=== PATIENT | male | born 1955 | race Caucasian/White ===

== ENCOUNTER 2017-12-05 13:26 | Inpatient (IN) | payer OTHER ==
[~2017-12-05] VITALS: Ht 177.8 cm; Wt 67.6 kg
[2017-12-05 17:01] VITALS: BP 150/84
[2017-12-05] MEDS ORDERED: TYLENOL EXTRA500 MG ORAL (18:32)
[2017-12-05 20:00] VITALS: BP 130/81
[2017-12-06] VITALS: BP 117/67
[2017-12-06 04:00] VITALS: BP 110/68
[2017-12-06 07:04] LABS: BASOPHILS % (AUTO) 0.7 % (0.0-2.0); EOSINOPHILS % (AUTO) 0.4 % (0.0-3.0); HEMOGLOBIN 8.9 G/DL (14.2-18.0); LYMPHOCYTES % (AUTO) 25.4 % (20.0-45.0); MEAN CORPUSCULAR VOLUME 101 FL (80-99); MONOCYTES % (AUTO) 9.8 % (1.0-10.0); NEUTROPHILS % (AUTO) 63.8 % (45.0-75.0); PLATELET COUNT 296 K/UL (150-450); RED BLOOD COUNT 2.76 M/UL (4.70-6.10); WHITE BLOOD COUNT 7.7 K/UL (4.8-10.8)
[2017-12-06 07:24] LABS: ALANINE AMINOTRANSFERASE 22 U/L (12-78); ALBUMIN 2.9 G/DL (3.4-5.0); ALBUMIN/GLOBULIN RATIO 0.8 (1.0-2.7); ALKALINE PHOSPHATASE 78 U/L (46-116); ANION GAP 6 mmol/L (5-15); ASPARTATE AMINO TRANSFERASE 16 U/L (15-37); BILIRUBIN,TOTAL 0.4 MG/DL (0.2-1.0); BLOOD UREA NITROGEN 13 mg/dL (7-18); CALCIUM 8.5 MG/DL (8.5-10.1); CARBON DIOXIDE 27 MMOL/L (21-32); CHLORIDE 106 MMOL/L (98-107); CREATININE 0.8 MG/DL (0.55-1.30); POTASSIUM 3.2 MMOL/L (3.5-5.1); SODIUM 139 MMOL/L (136-145)
[2017-12-06 07:58] VITALS: BP 120/68
[2017-12-06 12:00] VITALS: BP 124/75
--- NOTE | 2017-12-06 12:55 | History & Physical ---
History and Physical History & Physicial Dictated for Int Med-Dr Harper no [id number] Adrián Leblanc MD Dec 06, 2017 12:55
[2017-12-06 13:52] LABS: % IRON SATURATION 7 % (15-50); IRON 21 ug/dL (50-175); TOTAL IRON BINDING CAPACITY 315 ug/dL (250-450)
[2017-12-06 16:00] VITALS: BP 131/82
--- NOTE | 2017-12-06 19:15 | History and Physical Report ---
DATE OF ADMISSION: 12/05/2017 CHIEF COMPLAINT: The patient is a 62-year-old white male who presents with chief complaint of "I passed out". HISTORY OF PRESENT ILLNESS: The patient states a similar incident happened approximately six months ago at . The patient was evaluated at [facility] [place]. The patient states he left against medical advice prior to full workup being performed. The patient states he was at the bus stop yesterday. He had not eaten breakfast. The patient felt week. The patient states he "slumped to the ground." The patient states he was conscious of his surroundings during this episode. The patient did defecate on himself during this syncopal episode. The patient presented initially to [facility] Emergency Room. The patient was admitted with near syncopal episode. The patient is transferred to [facility] for insurance purposes. The patient is admitted for syncope to rule out seizure versus cerebrovascular accident. REVIEW OF SYSTEMS: CONSTITUTIONAL: The patient denies weight loss or weight gain. The patient denies fevers or chills. HEENT: The patient denies ear or throat pain. The patient denies headache. CARDIOVASCULAR: The patient denies palpitations or chest pain. CHEST: The patient denies wheeze or shortness of breath. ABDOMINAL: The patient denies nausea, vomiting, diarrhea, or constipation. GENITOURINARY: The patient denies dysuria or increased frequency of urination. NEUROMUSCULAR: The patient denies seizure or generalized weakness. PAST MEDICAL HISTORY: Significant for: 1. Seizure disorder, status post craniotomy at age 32. 2. Peptic ulcer disease, status post gastrointestinal hemorrhage. 3. Osteoporosis. 4. Hypercholesterolemia. 5. Nephrolithiasis x3. PAST SURGICAL HISTORY: Significant for craniotomy at age 32 for ablation of seizure disorder. CURRENT MEDICATIONS: As needed Tylenol. ALLERGIES: No known drug allergies. 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 The patient admits to tobacco use one pack per day. The patient denies alcohol use. PHYSICAL EXAMINATION: VITAL SIGNS: Temperature 99.4 degrees, respirations 20, pulse 73, and blood pressure 117/67. GENERAL: The patient is well developed, well nourished, white male, in no apparent distress. HEENT: Eyes, pupils equal and responsive to light and accommodation. Extraocular movements are intact. NECK: Supple without lymphadenopathy. CHEST: Lungs are clear to auscultation bilaterally without wheezes or rales. CARDIOVASCULAR: Regular rate. S1 and S2 normal without murmurs, rubs, or gallops. ABDOMEN: Soft, nontender, and nondistended. Positive bowel sounds. No evidence of hepatosplenomegaly. Currently, no rebound or guarding noted. EXTREMITIES: Negative for clubbing, cyanosis, or edema. RECTAL: Refused. GENITAL: Refused. NEUROLOGIC: Cranial nerves II to XII are grossly intact without focal deficits. Motor strength is 5/5 bilaterally intact. Deep tendon reflexes are 2+ plantar. INTEGUMENT: There are multiple contusions on the forehead. There is no laceration noted. LABORATORY STUDIES: From [place], WBC 10.2, hemoglobin 10.3, hematocrit 31.3, and platelets 385,000. , potassium 3.4, chloride 107, CO2 21, BUN 10, creatinine 0.88, and glucose 132. revealed status post right frontal craniotomy, otherwise within normal limits. ASSESSMENT: This is a 62-year-old white male with: 1. Syncopal episode. 2. History of seizure disorder. 3. Anemia. 4. Peptic ulcer disease. 5. History of gastrointestinal hemorrhage. 6. Hypercholesterolemia. 7. Osteoporosis. 8. Contusion of the forehead. TREATMENT: 1. Syncopal episode. A Neurology consultation was obtained with Dr. Tristan Torres. A Cardiology consultation has been obtained with Dr. Michael Mirza. We will follow recommendations of Cardiology and Neurology. Syncope may be secondary to on seizure versus cerebrovascular accident versus arrhythmia. 2. Peptic ulcer disease. The patient is currently anemic. A GI workup has been ordered with Dr. Robin Buchanan. 3. Peptic ulcer disease. Continue Protonix. 4. Hypercholesterolemia. 5. Osteoporosis. 6. Contusion of the forehead. Adrián Leblanc M.D. DR: Leon JOB#: [id number] CC:
[2017-12-06 20:00] VITALS: BP 141/77
[2017-12-07] VITALS: BP 140/77
[2017-12-07 04:00] VITALS: BP 134/83
[2017-12-07 06:42] LABS: HEMOGLOBIN 9.4 G/DL (14.2-18.0); MEAN CORPUSCULAR VOLUME 101 FL (80-99); PLATELET COUNT 305 K/UL (150-450); RED BLOOD COUNT 2.98 M/UL (4.70-6.10); RED CELL DISTRIBUTION WIDTH 14.7 % (11.6-14.8); WHITE BLOOD COUNT 6.4 K/UL (4.8-10.8)
[2017-12-07 07:09] LABS: ANION GAP 10 mmol/L (5-15); BLOOD UREA NITROGEN 16 mg/dL (7-18); CALCIUM 8.7 MG/DL (8.5-10.1); CARBON DIOXIDE 26 MMOL/L (21-32); CHLORIDE 106 MMOL/L (98-107); CHOLESTEROL 156 MG/DL (< 200); CREATININE 0.9 MG/DL (0.55-1.30); HDL CHOLESTEROL 58 MG/DL (40-60); POTASSIUM 3.4 MMOL/L (3.5-5.1); SODIUM 142 MMOL/L (136-145); TRIGLYCERIDES 104 MG/DL (30-150)
[2017-12-07 07:57] VITALS: BP 149/74
--- NOTE | 2017-12-07 10:18 | GI Initial Consult Note ---
History of Present Illness General Date patient seen: Dec 07, 2017 Time patient seen: 12:23 Referring physician: NILAM MACIAS Reason for Consultation: ANEMIA Present Illness HPI HISTORY OF PRESENT ILLNESS: The patient states a similar incident happened approximately six months ago. The patient was evaluated at [facility] at [place]. The patient states he left against medical advice prior to full workup being performed. The patient states he was at the bus stop yesterday. He had not eaten breakfast. The patient felt week. The patient states he "slumped to the ground." The patient states he was conscious of his surroundings during this episode. The patient did defecate on himself during this syncopal episode. GI consulted for anemia. Pt seen, awake A&Ox4 NAD no active s/sx of N/V/D. Denies any abdominal pain, mainly asymptomatic at this time. States he had an syncopal episode, but feels okay now. Labs show anemia. Last EGD/colonoscopy over 10 years ago. Home Meds Reported Medications Acetaminophen* (TYLENOL EXTRA STRENGTH*) 500 Mg Tablet, 500 MG ORAL Q6H PRN for Mild Pain/Temp > 100.5, TAB 0 Refills 12/05/17 Med list reviewed/reconciled: Yes Allergies: Coded Allergies: No Known Allergies (Unverified , 12/05/17) Patient History History Provided By: Patient, Medical Record [facility] Narrative PAST MEDICAL HISTORY: Significant for: 1. Seizure disorder, status post craniotomy at age 32. 2. Peptic ulcer disease, status post gastrointestinal hemorrhage. 3. Osteoporosis. 4. Hypercholesterolemia. 5. Nephrolithiasis x3. PAST SURGICAL HISTORY: Significant for craniotomy at age 32 for ablation of seizure disorder. Social History: Reports: smoking - life long smoker Review of Systems All Other Systems: negative except mentioned in HPI Physical Exam Vital Signs Date Time Temp Pulse Resp B/P (MAP) Pulse Ox O2 Delivery O2 Flow Rate FiO2 12/05/17 16:34 Room Air 12/05/17 17:01 98.8 64 20 150/84 (106) 97 Sp02 EP Interpretation: reviewed, normal Labs Laboratory Tests Test 12/07/17 06:05 White Blood Count 6.4 K/UL (4.8-10.8) Red Blood Count 2.98 M/UL (4.70-6.10) L Hemoglobin 9.4 G/DL (14.2-18.0) L Hematocrit 30.0 % (42.0-52.0) L Mean Corpuscular Volume 101 FL (80-99) H Mean Corpuscular Hemoglobin 31.5 PG (27.0-31.0) H Mean Corpuscular Hemoglobin Concent 31.2 G/DL (32.0-36.0) L Red Cell Distribution Width 14.7 % (11.6-14.8) Platelet Count 305 K/UL (150-450) Mean Platelet Volume 5.5 FL (6.5-10.1) L Neutrophils (%) (Auto) % (45.0-75.0) Lymphocytes (%) (Auto) % (20.0-45.0) Monocytes (%) (Auto) % (1.0-10.0) Eosinophils (%) (Auto) % (0.0-3.0) Basophils (%) (Auto) % (0.0-2.0) Neutrophils % (Manual) Pending Lymphocytes % (Manual) Pending Platelet Estimate Pending Platelet Morphology Pending Sodium Level 142 MMOL/L (136-145) Potassium Level 3.4 MMOL/L (3.5-5.1) L Chloride Level 106 MMOL/L (98-107) Carbon Dioxide Level 26 MMOL/L (21-32) Anion Gap 10 mmol/L (5-15) Blood Urea Nitrogen 16 mg/dL (7-18) Creatinine 0.9 MG/DL (0.55-1.30) Estimat Glomerular Filtration Rate > 60 mL/min (>60) Glucose Level 92 MG/DL (74-106) Calcium Level 8.7 MG/DL (8.5-10.1) Ferritin 27 NG/ML (8-388) Triglycerides Level 104 MG/DL (30-150) Cholesterol Level 156 MG/DL (< 200) LDL Cholesterol 89 mg/dL (<100) HDL Cholesterol 58 MG/DL (40-60) Cholesterol/HDL Ratio 2.7 (3.3-4.4) L General Appearance: well appearing, no apparent distress, alert Head: normocephalic EENT: PERRL/EOMI, normal ENT inspection Neck: supple Respiratory: normal breath sounds, no respiratory distress Cardiovascular: normal rate Gastrointestinal: normal inspection, non tender, soft, normal bowel sounds, non -distended Rectal: deferred Genitourinary: deferred Musculoskeletal: normal inspection, back normal Neurologic: normal inspection, alert, oriented x3, responsive Psychiatric: normal inspection, judgement/insight normal, memory normal Skin: normal inspection, normal color, no rash, warm/dry, palpation normal, well hydrated Lymphatic: normal inspection, no adenopathy Current Medications Current Medications Medications (Trade) Dose Ordered Sig/John Route PRN Reason Start Time Stop Time Status Last Admin Dose Admin Acetaminophen (Tylenol) 650 mg Q4H PRN ORAL Mild Pain (Pain Scale 1-3) 12/06/17 12:45 01/05/18 12:44 Acetaminophen (Tylenol) 650 mg Q4H PRN ORAL T>100.5 12/06/17 12:45 01/05/18 12:44 Dextrose (Dextrose 50%) 25 ml Q30M PRN IV Hypoglycemia 12/06/17 12:45 01/05/18 12:44 Dextrose (Dextrose 50%) 50 ml Q30M PRN IV Hypoglycemia 12/06/17 12:45 01/05/18 12:44 Pantoprazole (Protonix) 40 mg DAILY ORAL 12/06/17 12:45 01/05/18 12:44 12/06/17 15:09 GI: Plan Problems: (1) Anemia (2) PUD (peptic ulcer disease) (3) Syncope and collapse Plan EGD/colonoscopy to be scheduled pending cardiac work up pending echo okay to advance diet after work up anemia work up OB stool r/o GI bleed monitor H&H, prn transfusions bowel regime ppi fu labs Discussed with Dr. Buchanan. Thank you for this patient referral, we will follow. The patient was seen and examined at bedside and all new and available data was reviewed in the patients chart. I agree with the above findings, impression and plan. (Patient seen earlier today. Signature stamp does not reflect patient encounter time.). - MD Gricel Liriano,[facility] CHIEF CONTROLLER Dec 07, 2017 10:18
--- NOTE | 2017-12-07 11:31 | Consultation ---
History of Present Illness General Date patient seen: Dec 07, 2017 Present Illness HPI 62-year-old white male with hx of PUD, Seizure disorder, status post craniotomy at age 32 presented to [place] initially with CC of passing out. The patient states he was at the bus stop yesterday. He had not eaten breakfast. The patient felt week. The patient states he "slumped to the ground." The patient states he was conscious of his surroundings during this episode. He is transferred to [facility] for further evaluation. His Hemoglobin was very low. A GI consult is called already to rule out GI bleeding. Allergies: Coded Allergies: No Known Allergies (Unverified , 12/05/17) Medication History Scheduled PRN Acetaminophen* (Tylenol Extra Strength*), 500 MG ORAL Q6H PRN for Mild Pain/ Temp > 100.5, (Reported) Patient History Healthcare decision maker N Resuscitation status Full Code Advanced Directive on File No Past Medical/Surgical History Past Medical/Surgical History: (1) S/P craniotomy (2) PUD (peptic ulcer disease) Review of Systems Constitutional: Reports: sweats, malaise All Other Systems: negative except mentioned in HPI Physical Exam General Appearance: WD/WN Lines, tubes and drains: peripheral HEENT: normocephalic, atraumatic Neck: non-tender, normal alignment Respiratory/Chest: chest wall non-tender, lungs clear Breasts: no masses Cardiovascular/Chest: normal peripheral pulses Abdomen: normal bowel sounds, no organomegaly Genitourinary/Rectal: normal genital exam Last 24 Hour Vital Signs Date Time Temp Pulse Resp B/P (MAP) Pulse Ox O2 Delivery O2 Flow Rate FiO2 12/07/17 09:00 Room Air 12/07/17 08:00 55 12/07/17 07:57 98.4 74 20 149/74 (99) 94 12/07/17 04:00 55 12/07/17 04:00 98.0 62 20 134/83 (100) 93 12/07/17 00:00 98.0 65 20 140/77 (98) 96 12/07/17 00:00 61 12/06/17 21:00 Room Air 12/06/17 20:00 98.1 65 20 141/77 (98) 96 12/06/17 20:00 82 12/06/17 16:00 99.0 71 20 131/82 (98) 95 12/06/17 16:00 68 12/06/17 12:00 98.4 69 20 124/75 (91) 96 12/06/17 12:00 83 Intake and Output 12/06/17 12/07/17 19:00 07:00 Intake Total 800 ml Output Total 100 ml Balance 700 ml Intake Oral 800 ml Output Urine Total 100 ml # Bowel Movements 1 1 Laboratory Tests Test 12/07/17 06:05 White Blood Count 6.4 K/UL (4.8-10.8) Red Blood Count 2.98 M/UL (4.70-6.10) L Hemoglobin 9.4 G/DL (14.2-18.0) L Hematocrit 30.0 % (42.0-52.0) L Mean Corpuscular Volume 101 FL (80-99) H Mean Corpuscular Hemoglobin 31.5 PG (27.0-31.0) H Mean Corpuscular Hemoglobin Concent 31.2 G/DL (32.0-36.0) L Red Cell Distribution Width 14.7 % (11.6-14.8) Platelet Count 305 K/UL (150-450) Mean Platelet Volume 5.5 FL (6.5-10.1) L Neutrophils (%) (Auto) % (45.0-75.0) Lymphocytes (%) (Auto) % (20.0-45.0) Monocytes (%) (Auto) % (1.0-10.0) Eosinophils (%) (Auto) % (0.0-3.0) Basophils (%) (Auto) % (0.0-2.0) Neutrophils % (Manual) Pending Lymphocytes % (Manual) Pending Platelet Estimate Pending Platelet Morphology Pending Sodium Level 142 MMOL/L (136-145) Potassium Level 3.4 MMOL/L (3.5-5.1) L Chloride Level 106 MMOL/L (98-107) Carbon Dioxide Level 26 MMOL/L (21-32) Anion Gap 10 mmol/L (5-15) Blood Urea Nitrogen 16 mg/dL (7-18) Creatinine 0.9 MG/DL (0.55-1.30) Estimat Glomerular Filtration Rate > 60 mL/min (>60) Glucose Level 92 MG/DL (74-106) Calcium Level 8.7 MG/DL (8.5-10.1) Ferritin 27 NG/ML (8-388) Troponin I Pending Triglycerides Level 104 MG/DL (30-150) Cholesterol Level 156 MG/DL (< 200) LDL Cholesterol 89 mg/dL (<100) HDL Cholesterol 58 MG/DL (40-60) Cholesterol/HDL Ratio 2.7 (3.3-4.4) L Height (Feet): 5 Height (Inches): 10.00 Weight (Pounds): 149 Medications Current Medications Medications (Trade) Dose Ordered Sig/John Route PRN Reason Start Time Stop Time Status Last Admin Dose Admin Acetaminophen (Tylenol) 650 mg Q4H PRN ORAL Mild Pain (Pain Scale 1-3) 12/06/17 12:45 01/05/18 12:44 Acetaminophen (Tylenol) 650 mg Q4H PRN ORAL T>100.5 12/06/17 12:45 01/05/18 12:44 Dextrose (Dextrose 50%) 25 ml Q30M PRN IV Hypoglycemia 12/06/17 12:45 01/05/18 12:44 Dextrose (Dextrose 50%) 50 ml Q30M PRN IV Hypoglycemia 12/06/17 12:45 01/05/18 12:44 Pantoprazole (Protonix) 40 mg DAILY ORAL 12/06/17 12:45 01/05/18 12:44 12/06/17 15:09 Assessment/Plan Problem List: (1) Acute encephalopathy ICD Codes: G93.40 - Encephalopathy, unspecified SNOMED: 70007672, 845416433 (2) Anemia ICD Codes: D64.9 - Anemia, unspecified SNOMED: 158721107 (3) PUD (peptic ulcer disease) ICD Codes: K27.9 - Peptic ulcer, site unspecified, unspecified as acute or chronic, without hemorrhage or perforation SNOMED: 91633663 (4) S/P craniotomy ICD Codes: Z98.890 - Other specified postprocedural states SNOMED: 06240494, 20315551, 316215120 (5) Syncope and collapse ICD Codes: R55 - Syncope and collapse SNOMED: 742784690 Assessment/Plan telemetry monitoring GI work up anemia w/u in progress iron studies check echo cardio and neuro evaluation. Sergo Moore MD Dec 07, 2017 11:31
--- NOTE | 2017-12-07 12:17 | Diagnostic Imaging Report ---
APPROVED REPORT CPT Code: 27050 Vascular Symptoms Syncope CAROTID (BILATERAL) - Imaging reveals no significant plaque within the right and left extracranial carotid arteries. The Doppler spectral flow analysis is within normal limits throughout the extracranial carotid arteries bilaterally. VERTEBRAL- The vertebral arteries are within normal limits.
--- NOTE | 2017-12-07 12:22 | Cardiology Report ---
APPROVED REPORT EXAM: Two-dimensional and M-mode echocardiogram with Doppler and color Doppler. INDICATION Syncope M-Mode DIMENSIONS IVSd1.4 (0.7-1.1cm)Left Atrium (MM)3.7 (1.6-4.0cm) LVDd3.6 (3.5-5.6cm)Aortic Root3.2 (2.0-3.7cm) PWd1.0 (0.7-1.1cm)Aortic Cusp Exc.1.8 (1.5-2.0cm) IVSs1.6 cm LVDs2.1 (2.5-4.0cm) PWs1.5 cm Technically difficult study due to poor acoustical windows. Normal left ventricular chamber size, systolic function and wall motion to extent visualized. Left ventricular ejection fraction estimated to be 60-65 %. Mild left ventricular hypertrophy. No evidence of pericardial effusion. All other cardiac chamber sizes are within normal limits. Focal aortic valve sclerosis with adequate cusp excursion. Thickened mitral valve leaflets with normal excursion. Mitral annulus and aortic root calcification. Pulmonic valve not well visualized. Normal tricuspid valve structure. IVC at normal size with physiologic collapse. A color flow and spectral Doppler study was performed and revealed: Trace aortic regurgitation. Trace mitral regurgitation. Mitral diastolic velocities suggest reduced left ventricular relaxation c/w mild LV diastolic dysfunction (Grade I). Trace tricuspid regurgitation. Tricuspid systolic velocities suggests peak right ventricular systolic pressure of 16 mmHg.
--- NOTE | 2017-12-07 13:02 | Diagnostic Imaging Report ---
Indication: Seizure disorder. History of craniotomy 30 years ago Technique: The head was imaged in a 1.5 María magnet. Sequences obtained include sagittal and axial T1 FLAIR, axial T2 fast spin echo with fat saturation, axial T2 FLAIR, diffusion and ADC map. Comparison: None In the right frontal lobe there is a cystic focus measuring about 7 x 6.2 x 5.7 cm. There is an overlying craniotomy present. The cystic focus is similar in signal intensity to CSF and appears to communicate with the anterior horn of the right lateral ventricle. There is likely been resection of a part of the frontal lobe. There is no edema within the residual right frontal or temporal lobe. There is no midline shift. There is fairly extensive periventricular T2 hyperintense signal bilaterally presumably on the basis of chronic small vessel disease. Mild atrophy of the cerebrum noted. Moderate atrophy of the cerebellum demonstrated. There is no evidence of hemorrhage. There is no diffusion restriction to suggest ischemia. Osseous structures appear normal. There is either been resection or atrophy of the anterior part of the corpus callosum. The sella is grossly unremarkable. IMPRESSION: No acute CVA, mass effect, edema or hemorrhage. 7 cm cystic focus in the right frontal lobe in continuity with the right lateral ventricle and likely associated with previous partial right frontal lobe resection. Overlying craniotomy noted. Moderate cerebellar atrophy and mild cerebral atrophy. Nonspecific periventricular T2 hyperintense signal. Chronic small vessel disease likely given patient's age.
--- NOTE | 2017-12-07 13:11 | Diagnostic Imaging Report ---
Indication: Dyspnea Comparison: None A single view chest radiograph was obtained. Findings: Cardiomediastinal appearance is within normal limits for age. The lungs are clear. Pulmonary vascularity is appropriate. The diaphragmatic contour is smooth and costophrenic angles are sharp. No pleural effusions are identified. The bones are osteopenic. Impression: No acute findings
--- NOTE | 2017-12-07 15:02 | Cardiac Electrophysiology PN ---
Subjective Subjective [id number] Objective Last 24 Hour Vital Signs Date Time Temp Pulse Resp B/P (MAP) Pulse Ox O2 Delivery O2 Flow Rate FiO2 12/07/17 12:00 61 12/07/17 09:00 Room Air 12/07/17 08:00 55 12/07/17 07:57 98.4 74 20 149/74 (99) 94 12/07/17 04:00 55 12/07/17 04:00 98.0 62 20 134/83 (100) 93 12/07/17 00:00 98.0 65 20 140/77 (98) 96 12/07/17 00:00 61 12/06/17 21:00 Room Air 12/06/17 20:00 98.1 65 20 141/77 (98) 96 12/06/17 20:00 82 12/06/17 16:00 99.0 71 20 131/82 (98) 95 12/06/17 16:00 68 Intake and Output 12/06/17 12/07/17 19:00 07:00 Intake Total 800 ml Output Total 100 ml Balance 700 ml Intake Oral 800 ml Output Urine Total 100 ml # Bowel Movements 1 1 Laboratory Tests Test 12/07/17 06:05 White Blood Count 6.4 K/UL (4.8-10.8) Red Blood Count 2.98 M/UL (4.70-6.10) L Hemoglobin 9.4 G/DL (14.2-18.0) L Hematocrit 30.0 % (42.0-52.0) L Mean Corpuscular Volume 101 FL (80-99) H Mean Corpuscular Hemoglobin 31.5 PG (27.0-31.0) H Mean Corpuscular Hemoglobin Concent 31.2 G/DL (32.0-36.0) L Red Cell Distribution Width 14.7 % (11.6-14.8) Platelet Count 305 K/UL (150-450) Mean Platelet Volume 5.5 FL (6.5-10.1) L Neutrophils (%) (Auto) % (45.0-75.0) Lymphocytes (%) (Auto) % (20.0-45.0) Monocytes (%) (Auto) % (1.0-10.0) Eosinophils (%) (Auto) % (0.0-3.0) Basophils (%) (Auto) % (0.0-2.0) Differential Total Cells Counted 100 Neutrophils % (Manual) 63 % (45-75) Lymphocytes % (Manual) 25 % (20-45) Monocytes % (Manual) 11 % (1-10) H Eosinophils % (Manual) 1 % (0-3) Basophils % (Manual) 0 % (0-2) Band Neutrophils 0 % (0-8) Platelet Estimate Adequate Platelet Morphology Normal Hypochromasia 2+ Macrocytosis 1+ Sodium Level 142 MMOL/L (136-145) Potassium Level 3.4 MMOL/L (3.5-5.1) L Chloride Level 106 MMOL/L (98-107) Carbon Dioxide Level 26 MMOL/L (21-32) Anion Gap 10 mmol/L (5-15) Blood Urea Nitrogen 16 mg/dL (7-18) Creatinine 0.9 MG/DL (0.55-1.30) Estimat Glomerular Filtration Rate > 60 mL/min (>60) Glucose Level 92 MG/DL (74-106) Calcium Level 8.7 MG/DL (8.5-10.1) Ferritin 27 NG/ML (8-388) Troponin I 0.000 ng/mL (0.000-0.056) Triglycerides Level 104 MG/DL (30-150) Cholesterol Level 156 MG/DL (< 200) LDL Cholesterol 89 mg/dL (<100) HDL Cholesterol 58 MG/DL (40-60) Cholesterol/HDL Ratio 2.7 (3.3-4.4) Michael Tate MD Dec 07, 2017 15:02
--- NOTE | 2017-12-07 15:53 | Diagnostic Imaging Report ---
Indication: chest pain Technique: The study was conducted under the supervision of a fuel system maintenance supervisor. Exercise on a treadmill utilizing (Misha protocol) followed by intravenous administration of 31.6 mCi of technetium 99m Myoview was performed. Three plane SPECT imaging of the heart was then performed. A resting study was performed as part of the one-day protocol with 10.4 mCi of technetium 99m myoview injected intravenously at that time. Three plane SPECT imaging of the heart was obtained. Comparison: None Clinical data: Patient exercised for 3 minutes 7 seconds. Peak exercise heart rate 78 bpm, well short of the 139 bpm maximum predicted heart rate. Resting BP: 144/77. Exercise the peak: 165/80 Resting EKG: Sinus bradycardia. 1. Clinical response: Non ischemic 2. Electrocardiographic response: Non ischemic Findings: The myocardial perfusion scan demonstrates hypoperfusion to the distal anterior apical region. This appears slightly worse on the stress tomograms. Myocardial ischemia not excluded. LVEF estimated at 73%. IMPRESSION: Question of a anterior apical myocardial ischemia. Correlate clinically. LVEF 73% Suboptimal stress limiting evaluation.
[2017-12-07 16:00] VITALS: BP 130/72
--- NOTE | 2017-12-07 18:39 | Internal Med Progress Note ---
Subjective Date of Service: Dec 07, 2017 Physician Name Adrián Leblanc Attending Physician Nate Harper MD Current Medications Medications (Trade) Dose Ordered Sig/John Route PRN Reason Start Time Stop Time Status Last Admin Dose Admin Acetaminophen (Tylenol) 650 mg Q4H PRN ORAL Mild Pain (Pain Scale 1-3) 12/06/17 12:45 01/05/18 12:44 Acetaminophen (Tylenol) 650 mg Q4H PRN ORAL T>100.5 12/06/17 12:45 01/05/18 12:44 Dextrose (Dextrose 50%) 25 ml Q30M PRN IV Hypoglycemia 12/06/17 12:45 01/05/18 12:44 Dextrose (Dextrose 50%) 50 ml Q30M PRN IV Hypoglycemia 12/06/17 12:45 01/05/18 12:44 Pantoprazole (Protonix) 40 mg DAILY ORAL 12/06/17 12:45 01/05/18 12:44 12/06/17 15:09 Allergies: Coded Allergies: No Known Allergies (Unverified , 12/05/17) ROS Limited/Unobtainable: No Constitutional: Reports: no symptoms HEENT: Reports: no symptoms Cardiovascular: Reports: no symptoms Respiratory: Reports: no symptoms Gastrointestinal/Abdominal: Reports: no symptoms Genitourinary: Reports: no symptoms Neurologic/Psychiatric: Reports: no symptoms Subjective 62 YO M admitted with near syncope. Cover for Int med-Dr Flannery Objective Last Vital Signs Date Time Temp Pulse Resp B/P (MAP) Pulse Ox O2 Delivery O2 Flow Rate FiO2 12/07/17 12:00 61 12/07/17 09:00 Room Air 12/07/17 07:57 98.4 20 149/74 (99) 94 Laboratory Tests Test 12/07/17 06:05 White Blood Count 6.4 K/UL (4.8-10.8) Red Blood Count 2.98 M/UL (4.70-6.10) L Hemoglobin 9.4 G/DL (14.2-18.0) L Hematocrit 30.0 % (42.0-52.0) L Mean Corpuscular Volume 101 FL (80-99) H Mean Corpuscular Hemoglobin 31.5 PG (27.0-31.0) H Mean Corpuscular Hemoglobin Concent 31.2 G/DL (32.0-36.0) L Red Cell Distribution Width 14.7 % (11.6-14.8) Platelet Count 305 K/UL (150-450) Mean Platelet Volume 5.5 FL (6.5-10.1) L Neutrophils (%) (Auto) % (45.0-75.0) Lymphocytes (%) (Auto) % (20.0-45.0) Monocytes (%) (Auto) % (1.0-10.0) Eosinophils (%) (Auto) % (0.0-3.0) Basophils (%) (Auto) % (0.0-2.0) Differential Total Cells Counted 100 Neutrophils % (Manual) 63 % (45-75) Lymphocytes % (Manual) 25 % (20-45) Monocytes % (Manual) 11 % (1-10) H Eosinophils % (Manual) 1 % (0-3) Basophils % (Manual) 0 % (0-2) Band Neutrophils 0 % (0-8) Platelet Estimate Adequate Platelet Morphology Normal Hypochromasia 2+ Macrocytosis 1+ Sodium Level 142 MMOL/L (136-145) Potassium Level 3.4 MMOL/L (3.5-5.1) L Chloride Level 106 MMOL/L (98-107) Carbon Dioxide Level 26 MMOL/L (21-32) Anion Gap 10 mmol/L (5-15) Blood Urea Nitrogen 16 mg/dL (7-18) Creatinine 0.9 MG/DL (0.55-1.30) Estimat Glomerular Filtration Rate > 60 mL/min (>60) Glucose Level 92 MG/DL (74-106) Calcium Level 8.7 MG/DL (8.5-10.1) Ferritin 27 NG/ML (8-388) Troponin I 0.000 ng/mL (0.000-0.056) Triglycerides Level 104 MG/DL (30-150) Cholesterol Level 156 MG/DL (< 200) LDL Cholesterol 89 mg/dL (<100) HDL Cholesterol 58 MG/DL (40-60) Cholesterol/HDL Ratio 2.7 (3.3-4.4) L Intake and Output 12/06/17 12/07/17 18:59 06:59 Intake Total 800 ml Output Total 100 ml Balance 700 ml Intake Oral 800 ml Output Urine Total 100 ml # Bowel Movements 1 1 Objective PHYSICAL EXAMINATION: GENERAL: The patient is well developed, well nourished, white male, in no apparent distress. HEENT: Eyes, pupils equal and responsive to light and accommodation. Extraocular movements are intact. NECK: Supple without lymphadenopathy. CHEST: Lungs are clear to auscultation bilaterally without wheezes or rales. CARDIOVASCULAR: Regular rate. S1 and S2 normal without murmurs, rubs, or gallops. ABDOMEN: Soft, nontender, and nondistended. Positive bowel sounds. No evidence of hepatosplenomegaly. Currently, no rebound or guarding noted. EXTREMITIES: Negative for clubbing, cyanosis, or edema. RECTAL: Refused. GENITAL: Refused. NEUROLOGIC: Cranial nerves II to XII are grossly intact without focal deficits. Motor strength is 5/5 bilaterally intact. Deep tendon reflexes are 2+ plantar. INTEGUMENT: There are multiple contusions on the forehead. There is no laceration noted. Assessment/Plan Problem List: (1) Hypercholesterolemia (2) Osteoporosis (3) Contusion of forehead (4) Seizure disorder Assessment & Plan: Cardiology and neruology workup in progress (5) Syncope and collapse (6) Anemia Assessment & Plan: stable (7) PUD (peptic ulcer disease) Status: progressing Adrián Leblanc MD Dec 07, 2017 18:39
[2017-12-07 20:00] VITALS: BP 128/72
[2017-12-08] VITALS: BP 132/75
--- NOTE | 2017-12-08 00:45 | Consultation ---
DATE OF CONSULTATION: 12/07/2017 CARDIOLOGY CONSULTATION REFERRING PHYSICIAN: Nate Harper M.D. REASON FOR CONSULTATION: Recurrent syncope. HISTORY OF PRESENT ILLNESS: The patient is a 62-year-old gentleman with a history of syncope about six months ago when he was admitted to [facility], but the patient signed against medical advice. The patient also has a history of seizure disorder, status post craniotomy at the age of 32, presented to [facility] complaining of syncopal episodes. The patient apparently and had been eating breakfast and felt weak and then he slumped to the ground. He was transferred to [facility] for further evaluation and management. At the time of my evaluation, the patient denies any chest pain, palpitation, or shortness of breath. Denies any prior myocardial infarction or coronary artery disease. SOCIAL HISTORY: Does not smoke or drink alcohol. He lives at home. FAMILY HISTORY: Noncontributory. PHYSICAL EXAMINATION: VITAL SIGNS: Blood pressure is 149/74, pulse rate 55, respirations 18, and he is afebrile. HEAD AND NECK: Showed no JVD. LUNGS: Clear. CARDIOVASCULAR: Shows regular S1 and S2 with no gallop or murmur. ABDOMEN: Soft. EXTREMITIES: There is no pitting edema. SKIN: On the forehead and eye is ecchymotic. LABORATORY DATA: White count of 6.5, hemoglobin 9.4, hematocrit of 30, and platelet count is 305,000. Sodium is 142, potassium 3.4, BUN of 6, creatinine 0.9, and glucose of 92. Troponin negative x2. ASSESSMENT AND PLAN: 1. Status post recurrent syncope. probably help. An echocardiogram has already been done that showed the ejection fraction of 60% to 65%. No aortic stenosis. His MRI of the brain also did not show any acute mass, severe edema, or hemorrhage. The patient may benefit from electrophysiologic study that can be done as an outpatient for further evaluation. 2. Questionable history of seizures, status post craniotomy. 3. Peptic ulcer disease. Thank you very much, Dr. Harper, for allowing me to participate in the care of this patient. Please do not hesitate to contact me for any questions regarding my evaluation. Michael Mirza M.D. DR: Verna JOB#: [id number] CC:
[2017-12-08 04:00] VITALS: BP 131/75
[2017-12-08 07:39] LABS: BASOPHILS % (AUTO) 0.4 % (0.0-2.0); EOSINOPHILS % (AUTO) 1.6 % (0.0-3.0); HEMATOCRIT 28.8 % (42.0-52.0); HEMOGLOBIN 9.3 G/DL (14.2-18.0); LYMPHOCYTES % (AUTO) 24.2 % (20.0-45.0); MEAN CORPUSCULAR VOLUME 101 FL (80-99); MONOCYTES % (AUTO) 9.8 % (1.0-10.0); PLATELET COUNT 308 K/UL (150-450); RED BLOOD COUNT 2.85 M/UL (4.70-6.10); RED CELL DISTRIBUTION WIDTH 14.3 % (11.6-14.8); WHITE BLOOD COUNT 7.1 K/UL (4.8-10.8)
[2017-12-08 07:43] LABS: % IRON SATURATION 6 % (15-50); IRON 19 ug/dL (50-175); TOTAL IRON BINDING CAPACITY 332 ug/dL (250-450)
[2017-12-08 07:47] LABS: ALANINE AMINOTRANSFERASE 21 U/L (12-78); ALBUMIN 2.9 G/DL (3.4-5.0); ALBUMIN/GLOBULIN RATIO 0.7 (1.0-2.7); ALKALINE PHOSPHATASE 75 U/L (46-116); ANION GAP 10 mmol/L (5-15); ASPARTATE AMINO TRANSFERASE 16 U/L (15-37); BILIRUBIN,TOTAL 0.3 MG/DL (0.2-1.0); BLOOD UREA NITROGEN 17 mg/dL (7-18); CALCIUM 8.6 MG/DL (8.5-10.1); CARBON DIOXIDE 26 MMOL/L (21-32); CHLORIDE 106 MMOL/L (98-107); CREATININE 0.8 MG/DL (0.55-1.30); POTASSIUM 3.5 MMOL/L (3.5-5.1); SODIUM 142 MMOL/L (136-145)
[2017-12-08 08:00] VITALS: BP 121/82
--- NOTE | 2017-12-08 09:59 | Pulmonology Progress Note ---
Assessment/Plan Problems: (1) Acute encephalopathy (2) Anemia (3) PUD (peptic ulcer disease) (4) S/P craniotomy (5) Syncope and collapse Assessment/Plan All reviewed EEG, stress test,Echo reviewed pt doesn't want to take any seizure meds f/u by PMD dc home Subjective ROS Limited/Unobtainable: No Constitutional: Reports: no symptoms Respiratory: Reports: no symptoms Allergies: Coded Allergies: No Known Allergies (Unverified , 12/05/17) Objective Last 24 Hour Vital Signs Date Time Temp Pulse Resp B/P (MAP) Pulse Ox O2 Delivery O2 Flow Rate FiO2 12/08/17 09:00 Room Air 12/08/17 08:00 62 12/08/17 08:00 98.2 66 20 121/82 (95) 96 12/08/17 04:00 97.8 62 18 131/75 (93) 94 12/08/17 04:00 54 12/08/17 00:00 97.5 58 18 132/75 (94) 94 12/08/17 00:00 56 12/07/17 21:00 Room Air 12/07/17 20:00 97.3 94 18 128/72 (90) 95 12/07/17 20:00 60 12/07/17 16:00 58 12/07/17 16:00 97.3 73 20 130/72 (91) 98 12/07/17 12:00 61 Intake and Output 12/07/17 12/08/17 19:00 07:00 Intake Total 490 ml Balance 490 ml Intake Oral 490 ml # Voids 1 3 # Bowel Movements 1 1 General Appearance: WD/WN HEENT: normocephalic, atraumatic Respiratory/Chest: chest wall non-tender, lungs clear Cardiovascular: normal peripheral pulses, normal rate Abdomen: normal bowel sounds, soft, non tender Genitourinary: normal external genitalia Extremities: no cyanosis Neurologic/Psychiatric: 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 II-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 grossly normal Laboratory Tests 12/07/17 20:45: Stool Occult Blood Negative, Urine Opiates Screen Negative, Urine Barbiturates Screen Negative, Phencyclidine (PCP) Screen Negative, Urine Amphetamines Screen Negative, Urine Benzodiazepines Screen Negative, Urine Cocaine Screen Negative, Urine Marijuana (THC) Screen Negative 12/08/17 06:07: White Blood Count 7.1, Red Blood Count 2.85L, Hemoglobin 9.3L, Hematocrit 28.8L , Mean Corpuscular Volume 101H, Mean Corpuscular Hemoglobin 32.5H, Mean Corpuscular Hemoglobin Concent 32.2, Red Cell Distribution Width 14.3, Platelet Count 308, Mean Platelet Volume 5.7L, Neutrophils (%) (Auto) 64.0, Lymphocytes ( %) (Auto) 24.2, Monocytes (%) (Auto) 9.8, Eosinophils (%) (Auto) 1.6, Basophils (%) (Auto) 0.4, Reticulocyte Count [Pending], Prothrombin Time 10.4, Prothromb Time International Ratio 1.0, Activated Partial Thromboplast Time 30, Sodium Level 142, Potassium Level 3.5, Chloride Level 106, Carbon Dioxide Level 26, Anion Gap 10, Blood Urea Nitrogen 17, Creatinine 0.8, Estimat Glomerular Filtration Rate > 60, Glucose Level 87, Calcium Level 8.6, Iron Level 19L, Total Iron Binding Capacity 332, Percent Iron Saturation 6L, Unsaturated Iron Binding 313, Total Bilirubin 0.3, Aspartate Amino Transf (AST/SGOT) 16, Alanine Aminotransferase (ALT/SGPT) 21, Alkaline Phosphatase 75, Troponin I 0.017, Total Protein 6.8, Albumin 2.9L, Globulin 3.9, Albumin/Globulin Ratio 0.7L, Carcinoembryonic Antigen [Pending], Vitamin B12 Level 222, Folate 6.2L, Thyroid Stimulating Hormone (TSH) 1.428, Free Thyroxine 0.84 Current Medications Medications (Trade) Dose Ordered Sig/John Route PRN Reason Start Time Stop Time Status Last Admin Dose Admin Acetaminophen (Tylenol) 650 mg Q4H PRN ORAL Mild Pain (Pain Scale 1-3) 12/06/17 12:45 01/05/18 12:44 Acetaminophen (Tylenol) 650 mg Q4H PRN ORAL T>100.5 12/06/17 12:45 01/05/18 12:44 Dextrose (Dextrose 50%) 25 ml Q30M PRN IV Hypoglycemia 12/06/17 12:45 01/05/18 12:44 Dextrose (Dextrose 50%) 50 ml Q30M PRN IV Hypoglycemia 12/06/17 12:45 01/05/18 12:44 Levetiracetam (Keppra) 500 mg Q12HR ORAL 12/07/17 22:30 01/06/18 22:29 Pantoprazole (Protonix) 40 mg DAILY ORAL 12/06/17 12:45 01/05/18 12:44 12/08/17 08:38 Sergo Moore MD Dec 08, 2017 09:59
[2017-12-08] MEDS ORDERED: KEPPRA500 MG ORAL (10:00)
--- NOTE | 2017-12-08 12:43 | GI Progress Note ---
Assessment/Plan Problems: (1) Anemia ICD Codes: D64.9 - Anemia, unspecified SNOMED: 282598269 (2) Syncope and collapse ICD Codes: R55 - Syncope and collapse SNOMED: 048880713 (3) PUD (peptic ulcer disease) ICD Codes: K27.9 - Peptic ulcer, site unspecified, unspecified as acute or chronic, without hemorrhage or perforation SNOMED: 00976062 Status: stable Status Narrative Discussed with Dr. Buchanan. Assessment/Plan EGD/colonoscopy to be scheduled pending cardiac work up, can be done as outpatient regular diet, tolerating anemia work up OB stool r/o GI bleed monitor H&H, prn transfusions bowel regime ppi fu labs scheduled for dc today The patient was seen and examined at bedside and all new and available data was reviewed in the patients chart. I agree with the above findings, impression and plan. (Patient seen earlier today. Signature stamp does not reflect patient encounter time.). - Robin Buchanan MD Subjective Gastrointestinal/Abdominal: Reports: no symptoms Objective Last 24 Hour Vital Signs Date Time Temp Pulse Resp B/P (MAP) Pulse Ox O2 Delivery O2 Flow Rate FiO2 12/08/17 09:00 Room Air 12/08/17 08:00 62 12/08/17 08:00 98.2 66 20 121/82 (95) 96 12/08/17 04:00 97.8 62 18 131/75 (93) 94 12/08/17 04:00 54 12/08/17 00:00 97.5 58 18 132/75 (94) 94 12/08/17 00:00 56 12/07/17 21:00 Room Air 12/07/17 20:00 97.3 94 18 128/72 (90) 95 12/07/17 20:00 60 12/07/17 16:00 58 12/07/17 16:00 97.3 73 20 130/72 (91) 98 Intake and Output 12/07/17 12/08/17 19:00 07:00 Intake Total 490 ml Balance 490 ml Intake Oral 490 ml # Voids 1 3 # Bowel Movements 1 1 Laboratory Tests Test 12/07/17 20:45 12/08/17 06:07 Stool Occult Blood Negative (NEGATIVE) Urine Opiates Screen Negative (NEGATIVE) Urine Barbiturates Screen Negative (NEGATIVE) Phencyclidine (PCP) Screen Negative (NEGATIVE) Urine Amphetamines Screen Negative (NEGATIVE) Urine Benzodiazepines Screen Negative (NEGATIVE) Urine Cocaine Screen Negative (NEGATIVE) Urine Marijuana (THC) Screen Negative (NEGATIVE) White Blood Count 7.1 K/UL (4.8-10.8) Red Blood Count 2.85 M/UL (4.70-6.10) L Hemoglobin 9.3 G/DL (14.2-18.0) L Hematocrit 28.8 % (42.0-52.0) L Mean Corpuscular Volume 101 FL (80-99) H Mean Corpuscular Hemoglobin 32.5 PG (27.0-31.0) H Mean Corpuscular Hemoglobin Concent 32.2 G/DL (32.0-36.0) Red Cell Distribution Width 14.3 % (11.6-14.8) Platelet Count 308 K/UL (150-450) Mean Platelet Volume 5.7 FL (6.5-10.1) L Neutrophils (%) (Auto) 64.0 % (45.0-75.0) Lymphocytes (%) (Auto) 24.2 % (20.0-45.0) Monocytes (%) (Auto) 9.8 % (1.0-10.0) Eosinophils (%) (Auto) 1.6 % (0.0-3.0) Basophils (%) (Auto) 0.4 % (0.0-2.0) Reticulocyte Count 2.2 % (0.0-2.0) H Prothrombin Time 10.4 SEC (9.30-11.50) Prothromb Time International Ratio 1.0 (0.9-1.1) Activated Partial Thromboplast Time 30 SEC (23-33) Sodium Level 142 MMOL/L (136-145) Potassium Level 3.5 MMOL/L (3.5-5.1) Chloride Level 106 MMOL/L (98-107) Carbon Dioxide Level 26 MMOL/L (21-32) Anion Gap 10 mmol/L (5-15) Blood Urea Nitrogen 17 mg/dL (7-18) Creatinine 0.8 MG/DL (0.55-1.30) Estimat Glomerular Filtration Rate > 60 mL/min (>60) Glucose Level 87 MG/DL (74-106) Calcium Level 8.6 MG/DL (8.5-10.1) Iron Level 19 ug/dL (50-175) L Total Iron Binding Capacity 332 ug/dL (250-450) Percent Iron Saturation 6 % (15-50) L Unsaturated Iron Binding 313 ug/dL (112-346) Total Bilirubin 0.3 MG/DL (0.2-1.0) Aspartate Amino Transf (AST/SGOT) 16 U/L (15-37) Alanine Aminotransferase (ALT/SGPT) 21 U/L (12-78) Alkaline Phosphatase 75 U/L (46-116) Troponin I 0.017 ng/mL (0.000-0.056) Total Protein 6.8 G/DL (6.4-8.2) Albumin 2.9 G/DL (3.4-5.0) L Globulin 3.9 g/dL Albumin/Globulin Ratio 0.7 (1.0-2.7) L Carcinoembryonic Antigen Pending Vitamin B12 Level 222 PG/ML (193-986) Folate 6.2 NG/ML (8.6-58.9) L Thyroid Stimulating Hormone (TSH) 1.428 uiU/mL (0.358-3.740) Free Thyroxine 0.84 NG/DL (0.76-1.46) Height (Feet): 5 Height (Inches): 10.00 Weight (Pounds): 149 General Appearance: WD/WN, no apparent distress, alert Cardiovascular: normal rate Respiratory/Chest: normal breath sounds, no respiratory distress Abdominal Exam: normal bowel sounds, non tender, soft Extremities: normal range of motion, non-tender Leidy Monsalve BINDERY OPERATOR Dec 08, 2017 12:43
--- NOTE | 2017-12-08 21:15 | Electroencephalogram ---
DATE OF PROCEDURE: 12/07/2017 REQUESTING PHYSICIAN: Nate Harper M.D. READING PHYSICIAN: Tristan Torres M.D. PROCEDURE PERFORMED: Electroencephalogram. HISTORY: This EEG was performed on a 62-year-old gentleman with a history of multiple medical problems including seizure disorder, syncope, and frequent falls. The purpose of this EEG was to better delineate the type of seizure disorder. TECHNICAL NOTE: This EEG was performed on a [employer] with electrodes placed on the scalp according to the International 10-20 system. [id number] and [id number] montages were used. The EEG was technically satisfactory and was performed in the awake and drowsy states. Parts of the EEG were marred by EMG and electrode artifact. OBSERVATIONS: In the best awake state, the background activity consisted of 9-10 Hz posteriorly predominant well-developed alpha waveforms, which attenuated on eye opening. Drowsiness was characterized by dissolution of alpha rhythm and the appearance of slower frequencies in the 5-6 Hz theta range. During drowsiness, right temporal polymorphic delta activity was seen. In addition, sharp and slow wave discharges emanating from the T4 electrode were also noted. IMPRESSION: This is an abnormal EEG characterized by: 1. Polymorphic delta activity emanating from the right temporal area during drowsiness. 2. T4 sharp and slow wave discharges seen during drowsiness. COMMENT: This study is consistent with: 1. An epileptogenic focus in the right mid temporal region. 2. Focal dysfunction in the right temporal region. Clinical correlation is recommended. Tristan Torres M.D., M.S.P.H. DR: CEZAR JOB#: [id number] KETTY
--- NOTE | 2017-12-09 12:04 | Discharge Summary ---
Discharge Summary Discharge Summary _ DATE OF ADMISSION: 12/05/2017 DATE OF DISCHARGE: 12/08/2017 REASON FOR ADMISSION: 62 years old male with past medical history of seizure disorder ,status post craniotomy at age of 32, peptic ulcer disease, status post gastrointestinal hemorrhage, osteoporosis, hypercholesterolemia, nephrolithiasis, presented to emergency room with complaint that he passed out. Patient was on the bus stop the day prior to presentation to emergency department. He had not eaten his breakfast and felt weak . Subsequently he slumped to the ground. Patient reported that he was conscious of his surroundings during the episode, but reported bowel incontinence. Patient initially presented to [facility] emergency department . After evaluation patient was transferred to [facility] for insurance purposes. Patient admitted to [facility] with diagnoses of syncopal episode, history of seizure disorder, anemia, peptic ulcer disease, history of GI hemorrhage, hypercholesterolemia, osteoporosis, forehead contusion, CONSULTANTS: bar machine operator multiple spindle Dr. Mirza pulmonary Dr. Moore GI specialist Dr. Buchanan [facility]SE: Patient admitted to telemetry floor. Carotid duplex was essentially negative. MRI of the brain revealed no evidence of acute CVA. Moderate cerebellar atrophy and mild cerebral atrophy. 7 cm cystic focus in the right frontal lobe with continuation to the right lateral ventricle, and likely associated with the previous partial right frontal lobe resection. Overlying craniotomy noted. Echocardiogram revealed preserved ejection fraction of 60-65%. No wall motion abnormality. Perfusion stress test revealed questionable anterior apical myocardial ischemia ; calculated ejection fraction 73%. Senior Telecommunications Specialist closely followed . Senior Telecommunications Specialist recommended outpatient follow up with bar machine operator multiple spindle. The patient may benefit from electrophysiological study which could be done as outpatient for further evaluation. EEG was abnormal and consistent with epileptogenic focus in the right mid temporal region. Focal dysfunction in the right temporal region. Seizure precautions were maintained . Patient was started on Keppra . No further seizure activity while in the hospital. Urine toxicology screen was negative. Lipid panel and TSH within normal range. GI specialist closely followed. Hemoglobin and hematocrit were closely monitored with goal to keep hemoglobin above 7 . Anemia workup was done. Stool for occult blood was negative. Hemoglobin and hematocrit remained at baseline. Bowel regimen instituted. Patient started on GI prophylaxis. Patient was able to tolerate diet. GI recommended outpatient EGD and colonoscopy. Mental status stable. Patient was ready for discharge home. Counseled on compliance with medication regimen. FINAL DIAGNOSES: Syncopal episode, likely due to seizure Seizure disorder Acute toxic encephalopathy ( due to seizure activity) Status post craniotomy Anemia Peptic ulcer disease Hypercholesterolemia Osteoporosis DISCHARGE MEDICATIONS: See Medication Reconciliation list. DISCHARGE INSTRUCTIONS: Patient was discharged home. Follow up with primary care provider in one week. I have been assigned to dictate discharge summary for this account. I was not involved in the patient's management. Namita Fall NP Dec 09, 2017 12:04
== END 2017-12-08 11:05 | disposition home or self-care (01) | DRG 100 ==
LOC: 2E 16:15
DX: G40.909 Epilepsy, unspecified, not intractable, without status epilepticus (principal); G92 Toxic encephalopathy; R55 Syncope and collapse; Z98.890 Other specified postprocedural states; D64.9 Anemia, unspecified; K27.9 Peptic ulcer, site unspecified, unspecified as acute or chronic, without hemorrhage or perforation; E78.00 Pure hypercholesterolemia, unspecified; M81.0 Age-related osteoporosis without current pathological fracture; F17.200 Nicotine dependence, unspecified, uncomplicated; S00.83XA Contusion of other part of head, initial encounter; W19.XXXA Unspecified fall, initial encounter; Y92.521 Bus station as the place of occurrence of the external cause
CPT/HCPCS: 36415; 70551; 71045; 78452; 80048; 80053; 80061; 80299; 80307; 82270; 82378; 82607; 82728; 82746; 83540; 83550; 84439; 84443; 84484; 85007; 85025; 85044; 85610; 85730; 92610; 93017; 93306; 93880; 95819; J8499